=== PATIENT | male | born 1965 | race African-American/Black ===

== ENCOUNTER 2017-01-31 10:43 | Emergency (ER) | payer OTHER ==
[~2017-01-31] VITALS: Ht 180.3 cm; Wt 88.0 kg
[2017-01-31] MEDS ORDERED: TraMADol HCL 50 MG TABLET PO ONE (12:00)
[2017-01-31] MEDS ORDERED: CEFTAROLINE 600 MG/D5W 250 ML IV ONE (13:45)
[2017-01-31 16:30] VITALS: BP 151/73
[2017-01-31 16:48] LABS: GLUCOSE,POINT OF CARE 94 MG/DL (70-110)
== END 2017-01-31 17:08 | disposition home or self-care (01) ==
LOC: EMS 10:46
DX: L03.115 Cellulitis of right lower limb (principal)
CPT/HCPCS: 73610; 73700; 82962; 96365; 99284; J0712